=== PATIENT | male | born 1985 | race Caucasian/White ===

== ENCOUNTER 2017-05-02 08:20 | Emergency (ER) | payer OTHER ==
[~2017-05-02] VITALS: Ht 177.8 cm; Wt 70.3 kg
[2017-05-02] MEDS ORDERED: Flonase 0.05% N16 GM ×2 (08:58→09:10)
[2017-05-02] MEDS ORDERED: Pseudoephedrine30 MG PO ×2 (08:58→09:10)
[2017-05-02] MEDS ORDERED: Cheratussin AC118 ML PO (09:10)
== END 2017-05-02 09:23 | disposition home or self-care (01) ==
LOC: ER 08:20
DX: J11.1 Influenza due to unidentified influenza virus with other respiratory manifestations (principal)
CPT/HCPCS: 96372; 99283; J0780; J1885; Q0163